=== PATIENT | female | born 1955 | race Caucasian/White ===

== ENCOUNTER 2016-12-30 17:09 | Emergency (ER) | payer BC, OTHER ==
[~2016-12-30] VITALS: Ht 152.4 cm; Wt 83.6 kg
[2016-12-30 17:15] VITALS: TEMP 36.7; Ht 152.4 cm; Wt 83.6 kg
[2016-12-30] MEDS ORDERED: ACETAMINOPHEN 500 MG TAB PO STA (17:23)
[2016-12-30] MEDS ORDERED: TRAZ50TA35 PO (18:06)
[2016-12-30] MEDS ORDERED: GABA600T PO (18:06)
[2016-12-30] MEDS ORDERED: WELLBUTRIN SR PO (18:06)
[2016-12-30] MEDS ORDERED: [UNRECOGNIZED DRUG - REMARK] PO (18:06)
[2016-12-30] MEDS ORDERED: ALPR1TAB3 PO ×2 (18:06)
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
[2016-12-30 18:51] VITALS: BP 136/82; PULSE 59; O2SAT 93
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
== END 2016-12-30 18:51 | disposition home or self-care (01) ==
LOC: C.EDB 17:11 → C.EDD 18:51
DX: M25.551 Pain in right hip (principal); V43.62XA Car passenger injured in collision with other type car in traffic accident, initial encounter; Z79.899 Other long term (current) drug therapy

== ENCOUNTER → 2017-04-13 | Outpatient (CLI) | payer OTHER ==
[~2017-04-13] MED LIST: ALPR1TAB3 PO; GABA600T PO; TRAZ50TA35 PO; WELLBUTRIN SR PO; [UNRECOGNIZED DRUG - REMARK] PO
== END | disposition home or self-care (01) ==
LOC: C.LABPBG 14:12
PROVIDERS: ATTEND Physician Assistant
DX: R63.5 Abnormal weight gain (principal)

== ENCOUNTER → 2017-06-15 | Outpatient (CLI) | payer OTHER ==
[2017-06-15 12:18] LABS: HEMATOCRIT 41.4 % (37-47); HEMOGLOBIN 13.9 g/dL (12.0-16.0)
[2017-06-15 15:23] LABS: BLOOD UREA NITROGEN 17 mg/dl (7-18); CALCIUM 8.9 mg/dl (8.5-10.1); CARBON DIOXIDE 25 mmol/L (21-32); CREATININE 1.26 mg/dl (0.60-1.20); GLUCOSE 92 mg/dl (70-99); POTASSIUM 4.2 mmol/L (3.5-5.1); SODIUM 135 mmol/L (136-145)
[2017-06-15 15:27] LABS: CHOLESTEROL 183 mg/dl (0-200); LDL CHOLESTEROL CALCULATED 103 mg/dl
== END | disposition home or self-care (01) ==
LOC: C.LABPBG 09:42
PROVIDERS: ATTEND Internal Medicine Nephrology
DX: N18.3 Chronic kidney disease, stage 3 (moderate) (principal)

== ENCOUNTER 2017-07-09 10:40 | Emergency (ER) | payer OTHER ==
[~2017-07-09] VITALS: Ht 154.9 cm; Wt 81.3 kg
[2017-07-09 10:44] VITALS: Ht 154.9 cm; Wt 81.3 kg
[2017-07-09] MEDS ORDERED: MoRPHine SULFATE 4 MG/ML 1 ML CARP\\VIAL IV STA (11:20)
[2017-07-09] MEDS ORDERED: DEXAMETHASONE SOD INJ 4 MG/ML VIAL IV STA (11:20)
[2017-07-09] MEDS ORDERED: ONDANSETRON INJ 2 MG/ML 2 ML VIAL IV STA (11:20)
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
[2017-07-09] MEDS ORDERED: BLOOD PRESSURE PO (12:47)
[2017-07-09] MEDS ORDERED: BUPR75TA20 PO (12:47)
[2017-07-09] MEDS ORDERED: [UNRECOGNIZED DRUG - REMARK] PO (12:47)
[2017-07-09] MEDS ORDERED: TRAZ300T16 PO (12:47)
[2017-07-09] MEDS ORDERED: NRN600 PO (12:47)
[2017-07-09] MEDS ORDERED: TRAZ300T PO (12:47)
[2017-07-09] MEDS ORDERED: OXYC-57 PO (13:01)
[2017-07-09] MEDS ORDERED: METH4PAK PO (13:01)
[2017-07-09 13:09] VITALS: BP 110/67; PULSE 60; TEMP 36.4; O2SAT 94
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
== END 2017-07-09 13:10 | disposition home or self-care (01) ==
LOC: C.EDB 10:42 → C.EDD 13:10
DX: M54.16 Radiculopathy, lumbar region (principal); E78.5 Hyperlipidemia, unspecified; F32.9 Major depressive disorder, single episode, unspecified; Z90.710 Acquired absence of both cervix and uterus; Z79.899 Other long term (current) drug therapy

== ENCOUNTER → 2017-07-29 | Outpatient (CLI) | payer OTHER ==
[~2017-07-29] MED LIST changes: -ALPR1TAB3 PO; +BLOOD PRESSURE PO; +BUPR75TA20 PO; -GABA600T PO; +NRN600 PO; +OXYC-57 PO; +TRAZ300T16 PO; -TRAZ50TA35 PO; -WELLBUTRIN SR PO
[2017-07-29 09:49] LABS: BLOOD UREA NITROGEN 20 mg/dl (7-18); CREATININE 1.26 mg/dl (0.60-1.20)
--- NOTE | 2017-07-29 14:06 | DIAGNOSTIC IMAGING REPORT ---
MRI OF THE BRAIN WITHOUT AND WITH IV CONTRAST CLINICAL HISTORY: R41.3 Memory lossR29.90 Stroke-like symptoms COMPARISON STUDY: No previous studies for comparison. TECHNIQUE: MRI of the brain was performed from the vertex to the skull base utilizing various T1 and T2 weighted sequences. Following the IV administration of 8 mL of Gadavist contrast, additional enhanced images were obtained. FINDINGS: Sagittal T1, axial diffusion, proton density and T2 weighted axial, coronal FLAIR, and pre and post axial T1-weighted images were acquired. These were supplemented with post gadolinium coronal T1 weighted images. No intra or extra-axial mass lesions are visualized. Axial diffusion-weighted images reveal no evidence of acute or subacute infarction. There is no evidence of ventricular dilatation. Proton density T2-weighted and FLAIR images reveal no significant foci of increased T2 signal within the white matter. There are no abnormal flow voids. There is no evidence of pathologic enhancement. There are minimal foci of increased T2 signal within the mastoids, likely inflammatory. IMPRESSION: Minimal inflammatory changes in the mastoid. Otherwise normal MRI of the brain for age Electronically signed by: Elias Browne M.D. 07/29/2017 2:05 PM Dictated Date/Time: 07/29/2017 2:02 PM
== END | disposition home or self-care (01) ==
LOC: C.MRI 07:41
PROVIDERS: ATTEND Psychiatry & Neurology Neurology
DX: R41.3 Other amnesia (principal); R29.90 Unspecified symptoms and signs involving the nervous system; E78.5 Hyperlipidemia, unspecified